=== PATIENT | female | born 1950 | race Caucasian/White ===

== ENCOUNTER 2016-06-26 10:30 | Inpatient (IN) | payer MEDICARE ==
[2016-06-26] VITALS (9 sets, daily range): BP systolic 90–126; BP diastolic 39–80; PULSE 90–100; RESP 15–20; O2SAT 89–98
[~2016-06-26] VITALS: Ht 167.6 cm; Wt 100.5 kg
[~2016-06-26 10:30] MED LIST: ASPI-351 PO; ATRV10T PO; GABA600T PO; INSU100C4 SQ; LISI2.5T66 PO; OXYC-176 PO; VENL75CA3 PO; propranolol PO
--- NOTE | 2016-06-26 11:24 | ED.REPORT ---
HPI-General Illness Date of Service Jun 26, 2016 ED Provider: Jules Camargo MD The patient is a 66 year old female with history of hypertension, hyperlipidemia , fibromyalgia, diabetes mellitus type II, and peripheral neuropathy, who presents to the emergency department complaining of back pain that has worsened over the last 2 weeks. She has been unable to get out of bed due to the pain. She has also seemed more drowsy and confused compared to her baseline. She has also been falling. She fell last night and landed on her right side. It is unclear if she has hit her head with any of the falls. She had a few episode of nausea and vomiting over the last 2 weeks and had a fever. Prior to this the patient is normally able to walk, talk, and take care of her self. She lives with her daughter. The patient is not able to provide any history at this time. Nursing Notes Stated Complaint: DIZZY/VOMITING/BACK PAIN-SENT FROM DR OFFICE Chief Complaint: General Complaint Nursing Notes Reviewed: Yes Allergies: Coded Allergies: egg (Verified Allergy, Intermediate, Diarrhea, 06/26/16) milk (Verified Allergy, Intermediate, Diarrhea, 06/26/16) No Known Allergies (Verified , 06/26/16) Scheduled Amlodipine (Amlodipine) 5 Mg Tablet 5 MG PO DAILY Buspirone (Buspirone) 15 Mg Tablet 30 MG PO BID Cholecalciferol (Vitamin D3) (Vitamin D3) 5,000 Unit Capsule 5,000 UNIT PO DAILY Escitalopram Oxalate (Escitalopram Oxalate) 10 Mg Tablet 20 MG PO DAILY Gabapentin (Gabapentin) 400 Mg Capsule 1,200 MG PO TID Glimepiride (Glimepiride) 1 Mg Tablet 1 MG PO QAM Glucosamine HCl (Glucosamine HCl) 1,500 Mg Tablet 1,500 MG PO BID Lisinopril (Lisinopril) 40 Mg Tablet 40 MG PO DAILY Lovastatin (Lovastatin) 40 Mg Tablet 40 MG PO HS Metformin (Glucophage) 1,000 Mg Tablet 1,000 MG PO BID Topiramate (Topiramate) 50 Mg Tablet 50 MG PO HS Scheduled PRN Ibuprofen (Ibuprofen) 200 Mg Capsule 800 MG PO TID PRN PRN For Pain General Time Seen by MD: 11:23 Chief Complaint Altered mental status, Back pain Hx Obtained From: Patient, Son Arrived By: Walk-in Sudden in Onset?: No Onset Occurred: More than a week ago... (2 weeks) Symptom Duration: Since onset Location: : Back: Hip right Quality: Painful Severity: Current: Moderate Severity: Maximum: Moderate Recent Healthcare: No recent hospitalization Similar Sx Previous: No Past Medical History Past Medical History Hypertension Hyperlipidemia Fibromyalgia Diabetes mellitus type II Peripheral neuropathy Hx of renal abscess Past Surgical History Right capral tunnel surgery x3 Family History Noncontributory Smoking History Unknown if Ever Smoker Social History Alcohol Use: Denies alcohol use Other Social History: Good social support, , Lives with children, Local resident Ambulatory Status Independent Review of Systems +drowsiness Unable to Obtain ROS Patient condition, Mental status Full Review of Systems Constitutional: Reports: Fever, Weakness - generalized GI: Reports: Nausea, Vomiting Musculoskeletal: Reports: Back pain Neurologic: Reports: Confusion, Weakness Psychiatric: Reports: Change mental status Physical Exam Vital Signs Vital Signs Date Time Temp Pulse Resp B/P Pulse Ox O2 Delivery O2 Flow Rate FiO2 06/26/16 15:08 98 17 117/53 98 Room Air 06/26/16 13:56 100 17 98/61 98 Room Air 06/26/16 11:20 90 20 103/61 89 Room Air 06/26/16 10:58 36.1 94 15 90/61 97 Room Air Initial VS: Reviewed ENT: Mucous membranes moist, Conjunctiva normal, No scleral icterus Neck: Supple, Non-tender, Full range of motion Extremities: Vascular intact, Neuro intact, No swelling, No tenderness Skin: Warm, Dry, No cyanosis Alertness: Positive: Confused, Somnolent Unable to provide much history. No signs of trauma. Head / Eyes: Atraumatic, Normocephalic, PERRL, EOMI Respiratory / Chest: Atraumatic, Breath sounds NL, Breath sounds = bilat, No respiratory distress, No rales, No rhonchi, No wheezing O2 sat of 99 % with 1 L by nasal cannula Cardiovascular: Heart rate NL, Regular rhythm Heart Sounds / Murmur: Positive: Systolic murmur present.. (grade II) Abdomen: Atraumatic, Soft, Non-tender, No guarding, No rebound, BS normoactive , No hernia, No palpable mass, No pulsatile mass Bowel Sounds / Distention: Positive: Distention mild Mental Status: Positive: Confused, Somnolent Interpretation & Diagnostics Interpretation & Diagnostics: Urine dip: negative Lab Results Interpretation Result Diagram: 06/26/16 1145 06/26/16 1145 Test 06/26/16 11:45 06/26/16 13:20 06/26/16 13:25 White Blood Count 6.7th/mm3 (3.8-10.1) Red Blood Count 5.36mil/mm3 (3.90-5.20) Hemoglobin 14.2g/dL (12.0-15.6) Hematocrit 42.5% (35.0-46.0) Mean Corpuscular Volume 79.3fL (81-100) Mean Corpuscular Hemoglobin 26.5pg (27.0-35.0) Mean Corpuscular Hemoglobin Concent 33.4% (32.0-37.0) Red Cell Distribution Width 14.5% (12.3-15.4) Platelet Count 242bil/L (150-400) Neutrophils (%) (Auto) 74.3% (40-74) Lymphocytes (%) (Auto) 18.9% (14-46) Monocytes (%) (Auto) 6.6% (4-12) Eosinophils (%) (Auto) 0% (0-5) Basophils (%) (Auto) 0.1% (0-3) Sodium Level 132mEq/L (134-144) Potassium Level 4.4mEq/L (3.5-5.2) Chloride Level 94mEq/L (97-108) Carbon Dioxide Level 13mmol/L (18-29) Blood Urea Nitrogen 83mg/dL (8-27) Creatinine 3.02mg/dL (0.57-1.00) Estimat Glomerular Filtration Rate 22mL/min (>59) Glucose Level 155mg/dL (60-99) Calcium Level 9.9mg/dL (8.5-10.1) Total Bilirubin 0.2mg/dL (0.0-1.2) Aspartate Amino Transf (AST/SGOT) 15U/L (0-50) Alanine Aminotransferase (ALT/SGPT) 20U/L (0-32) Alkaline Phosphatase 79U/L (25-165) Troponin T 0.010ug/L (0.0-0.011) Total Protein 7.8g/dL (6.4-8.4) Albumin 4.4g/dL (3.4-5.0) Hold Cardona Top Tube Received (Received) Urine Color Yellow (YELLOW) Urine Appearance Hazy (CLEAR,HAZY) Urine pH 5.5 (5.0-8.0) Urine Specific [place] 1.030 (1.003-1.035) Urine Protein Tracemg/dL (NEG,TRACE) Urine Glucose (UA) Negativemg/dL (NEGATIVE) Urine Ketones Negativemg/dL (NEGATIVE) Urine Occult Blood Trace (NEGATIVE) Urine Nitrite Negative (NEGATIVE) Urine Bilirubin Negative (NEGATIVE) Urine Urobilinogen Normalmg/dL (NORMAL) Urine Leukocyte Esterase Trace (NEGATIVE) Urine RBC 0-2/hpf (0-2) Urine WBC 0-5/hpf (0-5) Urine Epithelial Cells Occasional/hpf (NONE-MOD) Urine Crystals Oxalic acid crystals (NONE Urine Bacteria Few/hpf (NONE-FEW) Urine Hyaline Casts Occasional/lpf (NONE) Urine Granular Casts None seen (NONE SEEN) Urine Waxy Casts None seen (NONE SEEN) Urine Red Blood Cell Casts None seen (NONE SEEN) Urine White Blood Cell Casts None seen (NONE SEEN) Urine Mucus None seen (None Seen) Urine Trichomonas None seen (NONE SEEN) Urine Yeast None (NONE SEEN) Urinalysis Comment None Urine Culture Reflexed Indicated Lactic Acid Level 1.5mmol/L (0.4-2.0) ECG Interpretation ECG Interpretation: Sinus rhythm 93 bpm LAD Inferior Q waves NO ST segment changes No T wave abnormalities No prior available for comparison Time: 13:20 Interpreted by: ED physician X-Ray Chest Interpretation Chest Xray Interpretation: IMPRESSION: No acute cardiopulmonary disease. Dictated by: Bryce Gaitan M.D. on 06/26/2016 at 12:34 Interpretation / Wet Read by: Interpret - Radiologist CT Head Interpretation IMPRESSION: 1. No definite acute intracranial abnormality with evaluation limited by streak artifact. 2. Left-sided neurostimulator lead demonstrated extending into the left thalamus. Dictated by: Rufino Garnica M.D. on 06/26/2016 at 14:19 Study: Head CT no contrast Interpretation / Wet Read by: Interpret - Radiologist Re-Eval/Medical Decision Med Decision/Clinical Course The patient is a 66 year old female with history of hypertension, hyperlipidemia , fibromyalgia, diabetes mellitus type II, and peripheral neuropathy, who presents to the emergency department complaining of back pain that has worsened over the last 2 weeks. She has been unable to get out of bed due to the pain. She has also seemed more drowsy and confused compared to her baseline. She has also been falling. She fell last night and landed on her right side. It is unclear if she has hit her head with any of the falls. She had a few episode of nausea and vomiting over the last 2 weeks and had a fever. Prior to this the patient is normally able to walk, talk, and take care of her self. She lives with her daughter. The patient is not able to provide any history at this time. Upon entering the room the patient is significantly confused which is not her baseline. She is unable to provide any history. On the monitor she has a blood pressure in the 80s systolic and his borderline tachycardic with a heart rate of 100. She is afebrile. IV access was obtained and the patient was aggressively fluid resuscitated with improvement in her blood pressure. Due to her profound altered mental status I proceeded with broad workup as below: CXR: Obtained, reviewed and interpreted by myself shows no evidence of acute infiltrates, effusions or pneumothorax. Cardiac and mediastinal silhouette normal. No bony or soft tissue abnormalities. Head CT demonstrated no evidence of acute intracranial process or hemorrhage. EKG was obtained and interpreted by myself as documented above. Doppler studies were notable as below: CBC no leukocytosis, hct 42.5 BUN acutely elevated from baseline at 83, creatinine acutely elevated from baseline at 3.02, K is WNL, Na is 132 Lactate is 1.5 Troponin is negative Urine dip negative With IV fluid resuscitation the patient's blood pressure improved. She remained significantly confused. She had no meningismus and without fever or leukocytosis I do not feel that lumbar puncture was immediately indicated. I see no evidence of acute infectious process at this time as chest x-ray demonstrates no pneumonia, urinalysis is not consistent with UTI and is no evidence of soft tissue infection or abscess. The cause of the patient's altered mental status remains unclear. At this time, she is in acute renal failure and I feel that she requires admission for further workup. Patient was discussed with the medical hospitalist accepted for further management. Source of Hx: Old records, Family Time of Eval: 13:30 Re-Evaluation/Progress Note: Discussed with the patient's son about the plan for admission. He agrees with plan. Consultation : Referral / Consult Name: Adan Dejesus MD Consulted With: Hospitalist Requested Call at: 14:31 Call Returned at: 14:44 Screen Printing Machine Operator Helper: Will see patient, Agrees with eval, Agrees with plan, Accepts admit Counseled Regarding: Diagnosis, Lab results, Need for admission Discharge & Departure Primary Impression: Altered mental status Altered mental status type: unspecified Qualified Code: R41.82 - Altered mental status, unspecified Additional Impressions: Acute renal failure Acute renal failure type: unspecified Qualified Code: N17.9 - Acute kidney failure, unspecified Hypotension Hypotension type: unspecified hypotension type Qualified Code: I95.9 - Hypotension, unspecified Disposition: ADMITTED TO HOSPITAL Discharge Condition All VS Reviewed: Yes Condition: Stable Referrals: Estephania Martini MD (PCP) Crit Care Except Billable Proc Time Spent: 105-134 minutes Services Performed: Patient management by me, Time spent at bedside, Reviewing test results, Reviewing imaging, Discussing patient care, Documentation in record, Time with fam/surrogate Scribe Attestation Portions of this note were transcribed by Angi Mari. I, Dr. Camargo personally performed the history, physical exam and medical decision-making; I reviewed and confirmed the accuracy of the information in the transcribed note. Signed by: Migue Stephen, 06/26/2016 at 1530. copies to: Estephania Martini MD, Beck O MD Jun 26, 2016 11:24 Angi Mari Jun 26, 2016 12:52
[2016-06-26 12:12] LABS: BASOPHILS % (AUTO) 0.1 % (0-3); EOSINOPHILS % (AUTO) 0 % (0-5); MONOCYTES % (AUTO) 6.6 % (4-12); Mean Corpuscular Hemoglobin 26.5 pg (27.0-35.0); Mean Corpuscular Volume 79.3 fL (81-100); NEUTROPHILS % (AUTO) 74.3 % (40-74); Platelet Count 242 bil/L (150-400)
--- NOTE | 2016-06-26 12:38 | DRSVH ---
PROCEDURE: X-RAY CHEST ONE VIEW, PORTABLE ([id number]) INDICATIONS: ALTERED LOC TECHNIQUE: One view of the chest was acquired. COMPARISON: [facility], CT, ANGIO CHEST, 05/22/2014, 14:29. [facility], CR , CHEST 1VW (PORTABLE), 05/22/2014, 12:55. [facility], CR, CHEST 1VW (PORTABLE), 9, 9:30. FINDINGS: Surgical changes and devices: The electronic device in the left hemithorax with electrodes projecting cephalic, unchanged. Lungs and pleura: No pleural effusions or pneumothorax. Lungs are clear. Mediastinum: Mediastinal contours appear normal. Heart size is normal. Bones and chest wall: No suspicious bony lesions. Overlying soft tissues appear unremarkable. IMPRESSION: No acute cardiopulmonary disease. Dictated by: Bryce Gaitan M.D. on 06/26/2016 at 12:34 Approved by: Bryce Gaitan M.D. on 06/26/2016 at 12:36
[2016-06-26 12:41] LABS: TROPONIN T 0.01 ug/L (0.0-0.011)
[2016-06-26] MEDS ORDERED: 0.9% Sodium Chloride 1,000 ML IV ONE ×2 (13:06→13:10)
[2016-06-26] MEDS ORDERED: Lactated Ringer's 1,000 ML IV SCH (13:08)
[2016-06-26] MEDS ORDERED: Alum-Mag Hydrox-Simeth 30 mL Suspension PO PRN (13:10)
[2016-06-26 13:44] LABS: APPEARANCE,URINE HAZY (CLEAR,HAZY); COLOR,URINE YELLOW (YELLOW); OCCULT BLOOD,URINE TRACE (NEGATIVE); PH,URINE 5.5 (5.0-8.0); UROBILINOGEN,URINE NORMAL (NORMAL)
--- NOTE | 2016-06-26 14:24 | DRSVH ---
PROCEDURE: CT BRAIN WITHOUT CONTRAST ([id number]) INDICATIONS: ams/trauma TECHNIQUE: Noncontrast 4.5 mm thick angled axial sections acquired from the foramen magnum to the vertex, with c oronal reformats. COMPARISON: [facility], CT, BRAIN W/O CONTRAST, 10/07/2008, 13:20. FINDINGS: CSF spaces: Basal cisterns are patent. No extra-axial fluid collections. Ventricles are normal in size and shape. Brain: No definite intracranial hemorrhage, mass, or mass effect. Serrano-white matter interface is gr ossly preserved. There is a probable small choroidal fissure cyst redemonstrated on the right measur ing up to 6 mm. Brain: No midline shift. No intracranial masses or hemorrhage. Serrano-white matter interface is norm al. Skull and face: Calvarium and visualized facial bones demonstrate no acute fractures. There is a le ft sided neurostimulator lead traversing the left frontal bone extending through the frontal lobe int o the left thalamus. The visualized lead appears intact. Sinuses: Visualized sinuses demonstrate mild pleural thickening in the ethmoid and maxillary sinuses with a smaller fluid level in the right maxillary sinus. Mastoid air cells are clear. IMPRESSION: 1. No definite acute intracranial abnormality with evaluation limited by streak artifact. 2. Left-sided neurostimulator lead demonstrated extending into the left thalamus. Dictated by: Rufino Garnica M.D. on 06/26/2016 at 14:19 Approved by: Rufino Garnica M.D. on 06/26/2016 at 14:22
[2016-06-26] MEDS ORDERED: TOPI50TA88 PO (14:48)
[2016-06-26] MEDS ORDERED: GLIM1TAB PO (14:48)
[2016-06-26] MEDS ORDERED: AMLO5TAB2 PO (14:48)
[2016-06-26] MEDS ORDERED: METF1000 PO (14:48)
[2016-06-26] MEDS ORDERED: BUSP15TA3 PO (14:48)
[2016-06-26] MEDS ORDERED: CHOL5000 PO (14:48)
[2016-06-26] MEDS ORDERED: IBUP200C PO (14:48)
[2016-06-26] MEDS ORDERED: LISI40TA PO (14:48)
[2016-06-26] MEDS ORDERED: ESCI10TA52 PO (14:48)
[2016-06-26] MEDS ORDERED: GLUC1500 PO (14:48)
[2016-06-26] MEDS ORDERED: LOVA40TA PO (14:48)
[2016-06-26] MEDS ORDERED: GABA-504 PO (14:48)
[2016-06-26] MEDS: 0.9% Sodium Chloride 1,000 ML IV SCH (17:47)
--- NOTE | 2016-06-26 17:58 | PCM.HPMED ---
Subjective Date of Service Jun 26, 2016 Primary Provider: Admitting Physician: Adan Dejesus MD Primary Care Physician: Estephania Martini MD Attending Physician: Adan Dejesus MD Chief Complaint: After mental status. Recurrent fall History of Present Illness: This is a 66-year-old female with multiple past medical issues including hypertension, fibromyalgia, hyperlipidemia, type II diabetes, peripheral neuropathy, severe essential tremor status post deep brain stimulation device implant at . This patient baseline is quite unclear as her daughter is not the best historian about her past medical record. Patient at this time is very confused and complement to motion formations . She was brought to the emergency room after she sustained multiple fall at home, around level over the course of 3 weeks also . Her daughter she has been having change in her mental status over the city of time but has gotten worse lately . She also called and on back pain for 2 weeks following a fall . Emergency room initial workup including a CT scan of the head is negative, patient found to be in acute renal failure with a BUN of 80 and a creatinine above 3She has been taking [id number] ibuprofen since then .She does not have no known previous history of kidney failure . Concerning her falls , patient has a walker but has not been using it. The patient is normally able to walk, talk, and take care of her self. Her daughter reports that she is seemed more drowsy and confused compared to her baseline. She had a few episode of nausea and vomiting over the last 2 weeks and had a fever. Nausea and vomiting had subsided since. Allergies Coded Allergies: egg (Verified Allergy, Intermediate, Diarrhea, 06/26/16) milk (Verified Allergy, Intermediate, Diarrhea, 06/26/16) No Known Allergies (Verified , 06/26/16) Home Medications Metformin, lisinopril, ibuprofen, glipizide, amlodipine, multivitamin, buspirone , escitalopram, topiramate PMH Hypertension Hyperlipidemia Fibromyalgia Diabetes mellitus type II Peripheral neuropathy Hx of renal abscess Surgical History DBS device implant Family History Family history reviewed and is noncontributory to the present illness Social History Hx Alcohol Use: No Hx Substance Use: No Hx Tobacco Use: No Smoking Status: Unknown if Ever Smoker Living Arrangement: with Family (patient lives with her daughter) Exam Vital Signs Vital Sign - Last Date Time Temp Pulse Resp B/P Pulse Ox O2 Delivery O2 Flow Rate FiO2 06/26/16 17:18 92 113/71 06/26/16 16:26 36.3 18 95 Room Air Exam General: Obese female, in bed comfortably, confused ENT: Mucous membranes moist, Conjunctiva normal, No scleral icterus Neck: Supple, Non-tender, Full range of motion , trachea is midline Head / Eyes: Atraumatic, Normocephalic, PERRL, EOMI sclerae anicteric Chest: Atraumatic, no chest wall tenderness, normal respiratory efforts Lungs : Breath sounds NL, Breath sounds = bilat, No respiratory distress, No rales, No rhonchi, No wheezing Cardiovascular: Heart rate NL, Regular rhythm, no gallop Heart Sounds / Murmur: Positive: Systolic murmur present.. (grade II) Abdomen: Soft, Non-tender, BS normoactive, No hernia, No palpable mass Extremities: Vascular intact, Neuro intact, No swelling, No tenderness Skin : No rash, no ulcers Neuro : Confused, tremulous. Awake and alert Lab and Diagnostics Result Diagram: 06/26/16 1145 06/26/16 1145 X-Rays, CTs and MRIs CT scan of the head reviewed : 1. No definite acute intracranial abnormality with evaluation limited by streak artifact. 2. Left-sided neurostimulator lead demonstrated extending into the left thalamus. Chest x-ray reviewed: No acute cardiopulmonary disease Assessment & Plan 1. Acute metabolic encephalopathy : Patient is in acute renal failure with a BUN of 80. She has been having back pain and taking a significant amount of ibuprofen. Patient has no sign of meningismus that warrant a lumbar puncture at this time. Head CT scan is negative. She is afebrile and has no chills. Obtain culture, UA, ammonia level, urine drug screen. Her symptoms have been going on for 3 weeks now. buspirone, escitalopram and topiramate on hold Baseline mental status is unknown to me that the daughter she had a long history of essential tremor status post deep brain stimulation device implant. Patient has been falling lately, she does not use a walker to ambulate but per daughter she does have a walker. Nephrology consulted. Obtain kidney ultrasound. Monitor electrolytes and renal function closely. Discontinue ibuprofen and lisinopril. 2. Acute renal failure : Likely secondary to NSAID. Monitor renal function and electrolyte closely. 3. Hypotension : Static sitting at 75 mL/h. Blood pressure was 90 systolic on admission but since then has been above 100. No clinical sign of symptom of sepsis or ongoing infection. 4. Back pain : Obtain Lumbar spine and pelvic CT scan . Chronic medical issues 1. History of essential tremor status post DBS device implant 2. Type II diabetes 3. History of abscess 4. Fibromyalgia 5. Hyperlipidemia Home medications reviewed and reconciled. Hold antihypertensive medication as well as , ibuprofen OTC, metformin and glipizide. Diabetic diet and sliding scale insulin with coverage. Heparin for DVT prophylaxis. This is a very sick patient admitted with worsening mental status over the period of 3 weeks. She is found to be in acute renal failure but I doubt that this is the sole culprit, she has no sign or symptom of infection. Patient has a long history of severe essential tremor requiring a deep brain stimulation device implant. Above is an initial plan of care will be adjusted as his clinical course and pending the above testings Time spent 75 minutes Adan Dejesus MD Jun 26, 2016 17:58
--- NOTE | 2016-06-26 18:28 | NUR ---
Admit Patient report was given by Viry Chirinos ED RN. Patient was transported by keegan to room 3001 and transferred by 3 person and slide board assist. Patient was hard to keep awake and BP was 90/60. Patient Blood sugar was 66. Patient was given apple juice and blood sugar was rechecked at 82. Patient skin has a small dry bump just below the left knee. Patient has small scratch on right lower calf. Dried brown skin on medial buttocks and some bruising on right lower arm. Patient was confused at times and at one point thought we were on a boat. Patient could not be oriented to room and bed alarm was placed on. Call light given to patient. Patient daughter in room.
--- NOTE | 2016-06-26 21:12 | DRSVH ---
PROCEDURE: US ABDOMEN INDICATIONS: Acute renal failure TECHNIQUE: Real-time scanning was performed of the abdominal and retroperitoneal organs, with image documentatio n. COMPARISON: [facility], US, ABDOMEN SONOGRAM, 10/10/2008, 13:59. FINDINGS: Liver length: 19.00 cm Gallbladder Wall Thickness: 2.30 mm CHD: 4.20 mm CBD: 5.70 mm Spleen length: 12.21 cm Right kidney length: 12.75 cm Left kidney length: 12.75 cm Aorta(Proximal): 1.80 cm Liver: Liver is normal in size and demonstrates diffuse increased echotexture. Gallbladder: There are gallstones. No gallbladder wall thickening, pericholecystic fluid or sonograp hic Barrera's sign. Biliary ducts: Intrahepatic bile ducts are non-dilated. Extrahepatic bile duct caliber is normal. Normal is 6-7 mm or less in diameter, or 10 mm or less post-cholecystectomy. Pancreas: Visualized portions of the pancreas are sonographically normal. Spleen: Spleen is normal in size and homogeneous in echotexture. Kidneys: Kidneys are normal in size and echotexture. No hydronephrosis or nephrolithiasis. No rashaad d masses. Aorta: Visualized aorta is normal in caliber at less than 3 cm. Iliacs: Proximal common iliac arteries are obscured by overlying bowel gas. IVC: Intrahepatic inferior vena cava is patent. Miscellaneous: No free abdominal fluid. IMPRESSION: 1. No ultrasound findings to explain acute renal failure. No hydronephrosis. 2. Cholelithiasis. No ultrasound evidence for acute cholecystitis. 3. Diffusely increased hepatic echotexture. This finding is most likely secondary to hepatic fatty in filtration although other hepatocellular disease may have a similar appearance. Recommend clinical co rrelation. Dictated by: Bryce Gaitan M.D. on 06/26/2016 at 21:07 Approved by: Bryce Gaitan M.D. on 06/26/2016 at 21:10
[2016-06-26] MEDS: Heparin 5,000 Unit/mL Inj SUBQ SCH (21:14)
--- NOTE | 2016-06-26 21:19 | DRSVH ---
PROCEDURE: CT LUMBAR SPINE WITHOUT CONTRAST ([id number]) INDICATIONS: fall /back pain TECHNIQUE: Noncontrast 3 mm thick sections acquired from the T12 level to the sacrum. Sagittal and coronal refo rmats were constructed. For radiation dose reduction, the following was used: automated exposure co ntrol. COMPARISON: None. FINDINGS: Image quality: Excellent. Bones: There is normal bony alignment. No acute vertebral body compression fractures. No suspiciou s lytic or blastic bony lesions. Central spinal caliber is of normal overall caliber. No pars defec ts. There is degenerative disc disease, severe at T10,-T11, T11-T12, T12-L1, and L5-S1. Moderate to severe bilateral facet arthropathy at L3-L4, L4-L5 and L5-S1. Soft tissues: No retroperitoneal masses or hematomas. Visualized aorta is normal in caliber. IMPRESSION: 1. No fractures. 2. Degenerative disc disease and facet arthropathy in lumbar spine. Dictated by: Bryce Gaitan M.D. on 06/26/2016 at 21:15 Approved by: Bryce Gaitan M.D. on 06/26/2016 at 21:17
--- NOTE | 2016-06-26 21:23 | DRSVH ---
PROCEDURE: CT PELVIS WITHOUT CONTRAST ([id number]) INDICATIONS: fall /back pain TECHNIQUE: Noncontrast 3 mm axial sections acquired through the bony pelvis, with coronal and sagittal reformatt ing. COMPARISON: None. FINDINGS: Image quality: Excellent. Bones: No fractures or dislocation. There is severe degenerative disc disease and facet arthropathy a t L5-S1. Moderate sacroiliac joint and hip joint degeneration bilaterally. There is osteitis pubis. A small lucency in the right pubis adjacent to the pubic symphysis is slightly caused by a cyst or denisa de. Soft tissues: No subcutaneous fluid collection to suggest hematoma. IMPRESSION: No fractures or dislocation. Degenerative changes as described. Dictated by: Bryce Gaitan M.D. on 06/26/2016 at 21:18 Approved by: Bryce Gaitan M.D. on 06/26/2016 at 21:22
[2016-06-27] VITALS (11 sets, daily range): BP systolic 94–154; BP diastolic 62–89; PULSE 77–91; RESP 18–19; O2SAT 89–98
--- NOTE | 2016-06-27 03:31 | NUR ---
Mentation Patient has been cooperative with care. Oriented to self, birthdate, and place. Patient is forgetful with word-searching; will speak in half sentences and have trouble remember what she was saying. Also repeats self. Two person assisting to get patient up to commode, has uncoordinated gait with baseline tremors. [place] alarm is on bed, daughter in room, and frequent rounding in place. Bed is in lowest, locked position.
[2016-06-27 05:43] LABS: Mean Corpuscular Hemoglobin 26.5 pg (27.0-35.0)
[2016-06-27] MEDS: 0.9% Sodium Chloride 1,000 ML IV SCH ×2 (06:06→18:38)
[2016-06-27] MEDS: Heparin 5,000 Unit/mL Inj SUBQ SCH ×2 (09:21→19:58)
--- NOTE | 2016-06-27 11:48 | PCM.PNMED ---
Subjective Date of Service Jun 27, 2016 Subjective pt seemed more alert this AM, AAOx2, communicative, remembers she fell but not details. had small amount of breakfast well, no n/v Exam Vital Signs Vital Sign - Last Date Time Temp Pulse Resp B/P Pulse Ox O2 Delivery O2 Flow Rate FiO2 06/27/16 09:20 36.6 87 18 119/76 92 Room Air Intake and Output 06/26/16 06/26/16 06/27/16 Cumulative From/Thru 15:00 23:00 07:00 06/26/16 16:29 - 06/27/16 04:08 Intake Total 119 ml 753 ml 872 ml Output Total 400 ml 400 ml Balance -281 ml 753 ml 472 ml IV Total 119 ml 753 ml 872 ml Output Urine Total 400 ml 400 ml Exam NAD, comfortably laying down on the bed no JVD, MMM, no LAD RRR, nl s1, s2 no mrg CTAB, no w,c S,ND,NT,normoactive BS+ warm, no edema, pulses 2/2 IVs and Medications Medications Reviewed: Medications were reviewed in detail Lab and Diagnostics Result Diagram: 06/27/16 0530 06/27/16 0530 X-Rays, CTs and MRIs CT scan of the head reviewed : 1. No definite acute intracranial abnormality with evaluation limited by streak artifact. 2. Left-sided neurostimulator lead demonstrated extending into the left thalamus. Chest x-ray reviewed: No acute cardiopulmonary disease Assessment & Plan 1.s/p fall, acute metabolic encephalopathy, likely toxic metabolic due to severe uremia, NICK, POA, CTH unremarkable. TSH WNL -clinically improved as NICK resolving, -continue to hold BURGLAR ALARM OPERATOR meds, buspirone, escitalopram and topiramate for now -telemetry given falls 2. Acute renal failure : Likely secondary to NSAID. improving with IVF Monitor renal function and electrolyte closely. -continue gentle hydration 3. Hypotension : Static sitting at 75 mL/h. Blood pressure was 90 systolic on admission but since then has been above 100. No clinical sign of symptom of sepsis or ongoing infection. 4. Back pain : Obtain Lumbar spine and pelvic CT scan . Chronic medical issues, stable 1. History of essential tremor status post DBS device implant 2. Type II diabetes, lispro SS 3. History of abscess 4. Fibromyalgia 5. Hyperlipidemia dispo: likely 2-3more days until renal functions improve, HH vs SNF per pt diet: diabetic Heparin for DVT prophylaxis. VTE Mechanical Devices: Intermittant Pneumatic CD Time spent 35 minutes Haim Seymour MD Jun 27, 2016 11:48
[2016-06-27 13:13] LABS: Magnesium 1.7 mg/dL (1.6-2.6); Phosphorus 4.6 mg/dL (2.5-4.9)
--- NOTE | 2016-06-27 13:34 | CONS ---
[address] [address] CONSULTATION REPORT PATIENT: GARRISON STORM V : 1950 MR#: [id number] ADMIT: 06/26/2016 JOB ID: [id number] DATE OF SERVICE: 06/27/2016 NEPHROLOGY CONSULTATION: REQUESTING PHYSICIAN: Adan Dejesus MD REASON FOR CONSULTATION: Management of abnormal kidney function. CHIEF COMPLAINT: Altered mental status. HISTORY OF PRESENT ILLNESS: This is a 66-year-old lady with significant past medical history of type 2 diabetes, hypertension, fibromyalgia, and dyslipidemia, who presented to the hospital due to altered mental status and frequent falls. The patient is confused and unable to provide me a meaningful history. Her daughter is at the bedside. The daughter reports that the patient has had declining mental status over the past three weeks. She also had history of frequent falls. She stated that over the past two days she had fallen three times already. The patient does not have any significant fever, headache, or blurry vision. The patient stated that she had a little bit of chills at home. She did not have any history of dysuria, hematuria, or lower extremity swelling. The daughter mentioned that the patient has been on the ibuprofen for at least 20 years treating for fibromyalgia. The amount of ibuprofen the patient has taken was approximately over 10 pills a day. Her initial blood work showed BUN of 83 and creatinine of 3.02. Her previous serum creatinine was 0.72 in October 2008. We do not have anything recent. However, the patient has not been told that she has kidney disease. Of note, the patient has been on lisinopril for blood pressure. PAST MEDICAL HISTORY: 1. Type 2 diabetes. 2. Hypertension. 3. Dyslipidemia. 4. Severe essential tremor, status post deep brain stimulation device implant at [facility]. 5. Fibromyalgia. 6. Peripheral neuropathy. PAST SURGICAL HISTORY: The patient does not have any abdominal surgery, only for over 30 years ago. She had deep brain stimulator implantation. FAMILY HISTORY: No kidney disease in the family. SOCIAL HISTORY: Denies current use of alcohol, tobacco, or illicit drugs. She lives with her daughter. REVIEW OF SYSTEMS: Unable to complete due to altered mental status. PHYSICAL EXAMINATION: Vitals: Temperature 36.6, pulse 87, respiratory 18, blood pressure 119/76, O2 sat 92% on room air. General appearance: Awake, confused at times. Lying in bed comfortably, in no acute distress. HEENT: No pallor, no jaundice. No JVD. No lymphadenopathy. No thyroid enlargement. Heart: Regular rhythm. Normal S1, S2. Systolic murmur noted, especially on the right upper chest. Abdomen: Soft, obese. Active bowel sounds. Nontender, nondistended. No hepatosplenomegaly. Extremities: No edema, cyanosis, or clubbing of fingers. LABORATORY: Sodium 137, potassium 3.8, chloride 105, bicarb of 14, BUN 70, creatinine 1.76, glucose 100. A1c 6.9. Lactic acid 1.5. Calcium of 1.9. Hemoglobin 12.2. UA: Specific gravity 1.030, pH 5.5, 0-2 RBCs, 0-5 WBCs, occasional hyaline cast, few bacteria. Oxalic acid crystal noted. CT brain showed left-sided neuro stimulator lead demonstrated extending into the left thalamus. Abdominal ultrasound showed no renal hydronephrosis. Positive for cholelithiasis without evidence of acute cholecystitis. Diffusely increased hepatic echotexture likely secondary to hepatic fatty infiltration. CT-spine of the lumbar spine showed no fracture. Positive for degenerative disk disease. ASSESSMENT: 1. Acute kidney injury, unknown baseline serum creatinine. However, the patient is not aware of having kidney disease. She came in with a serum creatinine of 3.02. She received IV fluid overnight and today came down to 1.76. Of note, the patient has been on ibuprofen for at least 20 years treating for fibromyalgia. According to the patient and her family she has taken at least 10 pills of [id number] ibuprofen every day. Her urine does not show any active sediment, however it shows a high specific gravity, indicating prerenal azotemia. I agree with the current fluid rate. We will continue normal saline 75 mL/hour. We will hold lisinopril and discontinue all NSAIDs. 2. Hypotension, unclear etiology. There is no active infection identified so far. Her blood pressure has improved with the IV fluids. Current antihypertensive medication now on hold. 3. Altered mental status and frequent falls. Could be related to metabolic encephalopathy, possible uremia. According to the daughter, she has improved overnight but remains confused at times. 4. Underlying disease of fibromyalgia, type 2 diabetes with peripheral neuropathy, and essential tremor status post deep brain stimulation device implantation. PLAN: 1. Continue current IV fluids. 2. Hold lisinopril and ibuprofen. 3. I will check her vitamin D and PTH level. 4. I will order a urine protein/creatinine ratio. Thank you for the consultation. We will monitor along with you.
[2016-06-27] MEDS: Ondansetron 2 mg/mL 2 mL Inj IVPUSH PRN (14:39)
--- NOTE | 2016-06-27 15:51 | NUR ---
Evaluation completed. Please go to "Notes" then click on "Assessments and Notes" (bottom left corner of screen). Then select appropriate discipline tab on top of screen.
[2016-06-28] VITALS (9 sets, daily range): BP systolic 153–171; BP diastolic 78–92; PULSE 75–86; RESP 18–20; O2SAT 94–96
--- NOTE | 2016-06-28 03:25 | NUR ---
Mentation/Activity Patient's mentation is more clear than last night. Patient still has trouble finishing thoughts. Oriented to self, place, birthdate, and is able to make conversation. More alert than last night also. Patient's strength has improved. Is now up with one person to BSC and walker- last night she was a maximum two-person assist. Patient continues to report vertigo when getting back in bed. [place] bed alarm on for safety, patient is using call light for needs. Intentional rounding in place.
[2016-06-28 05:24] LABS: BASOPHILS % (AUTO) 0.4 % (0-3); EOSINOPHILS % (AUTO) 0 % (0-5); MONOCYTES % (AUTO) 8.4 % (4-12); Mean Corpuscular Hemoglobin 26.4 pg (27.0-35.0); Mean Corpuscular Volume 80.5 fL (81-100); NEUTROPHILS % (AUTO) 47.8 % (40-74); Platelet Count 209 bil/L (150-400)
[2016-06-28 07:05] LABS: Magnesium 1.5 mg/dL (1.6-2.6); Phosphorus 3.3 mg/dL (2.5-4.9)
[2016-06-28] MEDS ORDERED: Magnesium Sulf 2 Gm/50mL Water 2 GM in IV Premix 1 EACH IV ONE (07:20)
[2016-06-28] MEDS: 0.9% Sodium Chloride 1,000 ML IV SCH ×2 (08:04→21:07)
[2016-06-28] MEDS: Heparin 5,000 Unit/mL Inj SUBQ SCH ×2 (08:05→20:00)
[2016-06-28] MEDS: BusPIRone 15 mg Dividose Tablet PO SCH ×2 (08:46→19:59)
[2016-06-28] MEDS: Ondansetron 2 mg/mL 2 mL Inj IVPUSH PRN (09:49)
--- NOTE | 2016-06-28 11:45 | PCM.PNMED ---
Subjective Date of Service Jun 28, 2016 Subjective pt looked more alert, still mildly confused per daughter had mild emesis once this AM, zofran given renal function greatly improved today received tramadol but still c/o whole body aches resumed home meds today Exam Vital Signs Vital Sign - Last Date Time Temp Pulse Resp B/P Pulse Ox O2 Delivery O2 Flow Rate FiO2 06/28/16 08:57 36.4 80 20 171/84 94 Room Air Intake and Output 06/27/16 06/27/16 06/28/16 Cumulative From/Thru 15:00 23:00 07:00 06/26/16 16:29 - 06/28/16 05:32 Intake Total 380 ml 2106 ml 792 ml 4150 ml Output Total 1050 ml 700 ml 2150 ml Balance -670 ml 1406 ml 792 ml 2000 ml Intake Oral 380 ml 1036 ml 1416 ml IV Total 1070 ml 792 ml 2734 ml Output Urine Total 1050 ml 700 ml 2150 ml # Voids 1 1 Exam NAD, comfortably laying down on the bed AAOx2-3, not oriented to month no JVD, MMM, no LAD RRR, nl s1, s2 no mrg CTAB, no w,c S,ND,NT,normoactive BS+ warm, no edema, pulses 2/2 IVs and Medications Medications Reviewed: Medications were reviewed in detail Lab and Diagnostics Result Diagram: 06/28/1618 06/28/16 0518 X-Rays, CTs and MRIs CT scan of the head reviewed : 1. No definite acute intracranial abnormality with evaluation limited by streak artifact. 2. Left-sided neurostimulator lead demonstrated extending into the left thalamus. Chest x-ray reviewed: No acute cardiopulmonary disease Assessment & Plan 1.s/p fall, acute metabolic encephalopathy, likely toxic metabolic due to severe uremia, NICK, POA, CTH unremarkable. TSH WNL -clinically improved as NICK resolving, -will resume FURNACE FEEDER meds, buspirone, escitalopram and topiramate, monitor response today. -continue telemetry given falls, no episodes so far. 2. Acute renal failure : Likely secondary to NSAID. improving with IVF -Monitor renal function and electrolyte closely. -continue gentle hydration, -appreciate renal recs. 3. Hypotension : Static sitting at 75 mL/h. Blood pressure was 90 systolic on admission but since then has been above 100. No clinical sign of symptom of sepsis or ongoing infection. 4. Back pain : Obtain Lumbar spine and pelvic CT scan . Chronic medical issues, stable 1. History of essential tremor status post DBS device implant 2. Type II diabetes, lispro SS 3. History of abscess 4. Fibromyalgia 5. Hyperlipidemia dispo: likely 1-2more days until renal functions improve, HH vs SNF per PT diet: diabetic Heparin for DVT prophylaxis. VTE Mechanical Devices: Intermittant Pneumatic CD Time spent 35min Haim Seymour MD Jun 28, 2016 11:45
--- NOTE | 2016-06-28 12:55 | PCM.PNMED ---
Subjective Date of Service Jun 28, 2016 Subjective more awake and alert today, somewhat confused. now c/o nausea, IV zofran administered. serum creatinine normalized. Exam Vital Signs Vital Sign - Last Date Time Temp Pulse Resp B/P Pulse Ox O2 Delivery O2 Flow Rate FiO2 06/28/16 08:57 36.4 80 20 171/84 94 Room Air Intake and Output 06/27/16 06/27/16 06/28/16 Cumulative From/Thru 15:00 23:00 07:00 06/26/16 16:29 - 06/28/16 05:32 Intake Total 380 ml 2106 ml 792 ml 4150 ml Output Total 1050 ml 700 ml 2150 ml Balance -670 ml 1406 ml 792 ml 2000 ml Intake Oral 380 ml 1036 ml 1416 ml IV Total 1070 ml 792 ml 2734 ml Output Urine Total 1050 ml 700 ml 2150 ml # Voids 1 1 Exam General appearance: Awake, confused at times. Oriented x 2 (place, person). Lying in bed comfortably, in no acute distress. HEENT: No pallor, no jaundice. No JVD. No lymphadenopathy. No thyroid enlargement. Heart: Regular rhythm. Normal S1, S2. Systolic murmur noted, especially on the right upper chest. Abdomen: Soft, obese. Active bowel sounds. Nontender, nondistended. No hepatosplenomegaly. Extremities: No edema, cyanosis, or clubbing of fingers. Lab and Diagnostics Result Diagram: 06/28/1651706/28/1618 X-Rays, CTs and MRIs CT scan of the head reviewed : 1. No definite acute intracranial abnormality with evaluation limited by streak artifact. 2. Left-sided neurostimulator lead demonstrated extending into the left thalamus. Chest x-ray reviewed: No acute cardiopulmonary disease Assessment & Plan 1. Acute kidney injury, unknown baseline serum creatinine. - secondary to prerenal azotemia. 2. Hypotension, unclear etiology. - There is no active infection identified so far. - Her blood pressure has improved with the IV fluids. - Now hypertensive, norvasc started. 3. Altered mental status and frequent falls. - improved. 4. Underlying disease of fibromyalgia. 5. Type 2 diabetes with peripheral neuropathy. 6. Essential tremor status post deep brain stimulation device implantation. Plan: Continue IVF NS 75 ml/hr for one more 1L then d/c. Avoid NSAIDs. will sign off, please do not hesitate to call with any question. Thank you for the consultation. VTE Mechanical Devices: Intermittant Pneumatic CD Amadeo Reeves MD Jun 28, 2016 12:55
--- NOTE | 2016-06-28 13:57 | NUR ---
Social Work: Initial Assessment Data: Pt is a 66 y/o female admitted for AMS/ARF. Pt's PCP is Dr Martini. Pt's insurance is [employer]. EMR reviewed, readmit score is 4, high. MEDICAL STAFF ASSISTANT met with pt at bedside with pt's daughter, role explained. Pt states that she lives in [place] with her daughter and her grandson. Pt is confused about a lot of the questions MEDICAL STAFF ASSISTANT is asking. Pt's daughter answered most questions following pt's response. Pt's daughter states that at baseline, pt drives, has assistance with medications but no other ADL's. Pt has no DME, has no hx of HH or SNF, no LTC or VA benefits, and is not a caregiver. Pt's daughter states she is the DPOA, MEDICAL STAFF ASSISTANT requested copy for hospital. MEDICAL STAFF ASSISTANT explained that PT is recommending SNF, SNF/HH choice list given. Pt's daughter states [facility] with [facility] Robbin Saucedo second. UR specialist notified, referrals made. MEDICAL STAFF ASSISTANT offered [facility] book to pt's daughter, she accepted. MEDICAL STAFF ASSISTANT explained that [facility] medicare would need to approve or deny SNF stay prior to d/c to SNF. MEDICAL STAFF ASSISTANT explained the choices if denied including HH, private pay caregiving, and assisted living facilities. Pt's daughter states understanding. MEDICAL STAFF ASSISTANT will continue to follow. Assessment: Pt who is independent at baseline. Plan: Pt will d/c either to SNF ([facility] or [facility], both referred), or home with daughter with HH and possible private pay caregiving. MEDICAL STAFF ASSISTANT will continue to follow. STEPHANIE Hernandez Addendum: 06/28/16 at 1403 by ABUNDIO WHITE Amended: Links added.
--- NOTE | 2016-06-28 14:02 | NUR ---
Gave acces and faxed facehseet to [facility] and [facility] per TRIM MACHINE ADJUSTER
--- NOTE | 2016-06-28 17:27 | NUR ---
Mentation/Activity/pain Patient is oriented to self, place and month. Reoriented her to day and date. She is able to stand with contact guard to use BSC. Denies nausea, lightheadedness or vertigo with movement. Refused to take Gabapentin as prescribed as she stated she vomited after taking her medication this am. Per RN report, she had a small emesis after taking her medications. Pt stated she has pain in her flank area, was unable to describe exactly where the pain was, but was able to point to the location on this RNs body. Pt was also unable to describe the type of pain that she is experiencing. Pt agreed to take her PO tylenol for pain. Upon reassessment she was unable to verbalize a number using pain scale. She could only state that she still had pain, but it was less. [place] bed alarm on for safety, patient is using call light for needs. Intentional rounding in place.
[2016-06-29 04:03] VITALS: BP 160/90; PULSE 68; RESP 18; O2SAT 97
[2016-06-29 06:00] VITALS: PULSE 84
[2016-06-29 06:36] LABS: BASOPHILS % (AUTO) 0.2 % (0-3); EOSINOPHILS % (AUTO) 0 % (0-5); MONOCYTES % (AUTO) 8.5 % (4-12); Mean Corpuscular Hemoglobin 26.4 pg (27.0-35.0); Mean Corpuscular Volume 77.1 fL (81-100); Platelet Count 249 bil/L (150-400)
[2016-06-29 06:59] LABS: Magnesium 1.5 mg/dL (1.6-2.6); Phosphorus 2.8 mg/dL (2.5-4.9)
[2016-06-29] MEDS ORDERED: Magnesium Sulf 2 Gm/50mL Water 2 GM in IV Premix 1 EACH IV ONE (07:20)
[2016-06-29] MEDS: BusPIRone 15 mg Dividose Tablet PO SCH (08:22)
[2016-06-29] MEDS: Heparin 5,000 Unit/mL Inj SUBQ SCH (08:24)
[2016-06-29 09:10] VITALS: PULSE 63
[2016-06-29 09:40] VITALS: BP 152/75; PULSE 79; RESP 20; O2SAT 93
--- NOTE | 2016-06-29 10:36 | PCM.DIMED ---
Discharge Instructions Date of Service Jun 29, 2016 Dates of Hospitalization Jun 26, 2016 at 15:52 Discharge Diagnosis Discharge Diagnosis Acute encephalopathy, falls in the setting of severe uremia, NICK Medication Instructions Please note that Lisinopril is stopped due to kidney injury, Please take 2tab of amlodipine, 10mg for better blood pressure control Please avoid ibuprofen, Advil, Alleve for your pain, because this is also bad for your kidneys Diet Diabetic, Renal Diet Activity No restrictions Patient Instructions You were hospitalized with confusion, falls, poor kidney functions. Your kidney function greatly improved with medical treatment. Follow-up plan please follow up with your doctor in one week. Follow-up Provider: Estephania Martini MD Follow-up with PCP in: 1 week Haim Seymour MD Jun 29, 2016 10:36
[2016-06-29] MEDS ORDERED: AMLO5TAB2 PO (10:38)
--- NOTE | 2016-06-29 11:57 | NUR ---
Social Work-readiness for discharge: Data:EMR reviewed. Pt is on day 3 of hospitalization for AMS per H&P. Pt may be medically stable later today. PT saw pt and continues to recommend SNF vs home with HH. Pt ambulating about 35ft. SW followed up with pt and daughter, SW role explained. Pt and daughter declining SNF, would prefer to return home. SW discussed HH services, HH choice list provided. Daughter has no agency preference. SW referred to [facility] and made referral to [facility] for RN,PT, OT, and VENDING SERVICE TECHNICIAN. Daughter lives with pt and has set up friends to assist during the day.F2F in folder. SW will continue to follow. Assessment:pt who would benefit from HH. Plan:Pt to discharge home with daughter when medically stable via POV. Pt and daughter declining SNF. Referral made to [facility] for RN,PT,OT, and VENDING SERVICE TECHNICIAN. F2F in folder. SW will continue to follow. STEPHANIE Kearney
--- NOTE | 2016-06-29 12:02 | NUR ---
Social Work-discharge: Data:EMR reviewed. Pt is on day 3 of hospitalization for AMS per H&P. Pt may be medically stable later today. PT saw pt and continues to recommend SNF vs home with HH. Pt ambulating about 35ft. SW followed up with pt and daughter and confirms plan of home with family/friend assist and HH services. Pt/family continue to decline SNF. SW informed Eldon Schroeder with [facility] of discharge and faxed in F2F and orders for RN,PT,OT, and SPACE OPERATIONS OFFICER. [facility] has availability for services starting Saturday 07/01. Pt's daughter to provide transport home. All updated and agreeable to plan. Assessment:Pt who would benefit from HH. Plan:Pt to discharge home with daughter via POV. Daughter has friends to assist during the day at home when daughter is not there. F2F and orders faxed into [facility] for RN,PT, OT, and SPACE OPERATIONS OFFICER. All updated and agreeable to plan. STEPHANIE Kearney
--- NOTE | 2016-06-29 12:02 | NUR ---
choice list provided. STEPHANIE Kearney
--- NOTE | 2016-06-29 12:19 | NUR ---
Discharge Patient departed unit via wheelchair accompanied by staff and daughter. Patient alert and oriented x3, confused intermittently but easily redirected. Patient up to bathroom standby assist with front wheeled walker. Prior to discharge, patient displayed adequate elimination and nutritional intake. Discharge instructions/medications and diet reviewed with patient and daughter prior to discharge.All questions addressed. Patient belongings, discharge instructions and prescription in hand.
--- NOTE | 2016-06-29 16:54 | PCM.DC.MED ---
Discharge Summary Date of Service Jun 29, 2016 Dates of Hospitalization Date of Hospital Admission Jun 26, 2016 at 15:52 Date of Discharge: Jun 29, 2016 Providers: Admitting Physician: Adan Dejesus MD Primary Care Physician: Estephania Martini MD Attending Physician: Adan Dejesus MD Diagnosis at Time of Discharge Diagnosis at Time of Discharge Acute encephalopathy, falls in the setting of severe uremia, NICK Acute renal failure Chronic medical issues, stable 1. History of essential tremor status post DBS device implant 2. Type II diabetes, lispro SS 3. History of abscess 4. Fibromyalgia 5. Hyperlipidemia 6. HTN Consultations Nephrology Procedures XRay, CTs & MRIs PROCEDURE: US ABDOMEN INDICATIONS: Acute renal failure TECHNIQUE: Real-time scanning was performed of the abdominal and retroperitoneal organs, with image documentation. COMPARISON: [facility], [place], ABDOMEN SONOGRAM, 10/10/2008, 13:59. FINDINGS: Liver length: 19.00 cm Gallbladder Wall Thickness: 2.30 mm CHD: 4.20 mm CBD: 5.70 mm Spleen length: 12.21 cm Right kidney length: 12.75 cm Left kidney length: 12.75 cm Aorta(Proximal): 1.80 cm Liver: Liver is normal in size and demonstrates diffuse increased echotexture. Gallbladder: There are gallstones. No gallbladder wall thickening, pericholecystic fluid or sonographic Barrera's sign. Biliary ducts: Intrahepatic bile ducts are non-dilated. Extrahepatic bile duct caliber is normal. Normal is 6-7 mm or less in diameter, or 10 mm or less post-cholecystectomy. Pancreas: Visualized portions of the pancreas are sonographically normal. Spleen: Spleen is normal in size and homogeneous in echotexture. Kidneys: Kidneys are normal in size and echotexture. No hydronephrosis or nephrolithiasis. No solid masses. Aorta: Visualized aorta is normal in caliber at less than 3 cm. Iliacs: Proximal common iliac arteries are obscured by overlying bowel gas. IVC: Intrahepatic inferior vena cava is patent. Miscellaneous: No free abdominal fluid. IMPRESSION: 1. No ultrasound findings to explain acute renal failure. No hydronephrosis. 2. Cholelithiasis. No ultrasound evidence for acute cholecystitis. 3. Diffusely increased hepatic echotexture. This finding is most likely secondary to hepatic fatty infiltration although other hepatocellular disease may have a similar appearance. Recommend clinical correlation. Dictated by: Bryce Gaitan M.D. on 06/26/2016 at 21:07 Approved by: Bryce Gaitan M.D. on 06/26/2016 at 21:10 CT scan of the head reviewed : 1. No definite acute intracranial abnormality with evaluation limited by streak artifact. 2. Left-sided neurostimulator lead demonstrated extending into the left thalamus. Chest x-ray reviewed: No acute cardiopulmonary disease Brief History This is a 66-year-old female with multiple past medical issues including hypertension, fibromyalgia, hyperlipidemia, type II diabetes, peripheral neuropathy, severe essential tremor status post deep brain stimulation device implant at . This patient baseline is quite unclear as her daughter is not the best historian about her past medical record. Patient at this time is very confused and complement to motion formations . She was brought to the emergency room after she sustained multiple fall at home, around level over the course of 3 weeks also . Her daughter she has been having change in her mental status over the city of time but has gotten worse lately . She also called and on back pain for 2 weeks following a fall . Emergency room initial workup including a CT scan of the head is negative, patient found to be in acute renal failure with a BUN of 80 and a creatinine above 3She has been taking [id number] ibuprofen since then .She does not have no known previous history of kidney failure . Concerning her falls , patient has a walker but has not been using it. The patient is normally able to walk, talk, and take care of her self. Her daughter reports that she is seemed more drowsy and confused compared to her baseline. She had a few episode of nausea and vomiting over the last 2 weeks and had a fever. Nausea and vomiting had subsided since. Hospital Course acute problems 1.s/p fall, acute metabolic encephalopathy, likely toxic metabolic due to severe uremia, NICK, CTH was unremarkable. TSH WNL. pt was clinically improved, back to baseline MS as NICK resolving. pt was resumed all of her [employer] meds, buspirone, escitalopram and topiramate, didn't affect her mental status. patient ambulated with normal gait, assessed by PT, deemed safe to d/c to home with home health. 2.Acute renal failure : Likely secondary to NSAIDs, pt was off on all NSAID, lisinopril during hospitalization. Gentle hydration 75cc/hr given for 2days, Renal function rapidly improved, 3. Hypotension. patient was initially hypotensive to 90s but became hypertensive to 150s as lisinopril being stopped, recommended to increase amlodipine 10mg qd upon d/c, further adjustment per PCP later. Chronic medical issues, stable 1. History of essential tremor status post DBS device implant 2. Type II diabetes, lispro SS 3. History of abscess 4. Fibromyalgia 5. Hyperlipidemia Exam Vital Signs (Last) Date Time Temp Pulse Resp B/P Pulse Ox O2 Delivery O2 Flow Rate FiO2 06/29/16 11:30 Supplement Oxygen 06/29/16 09:40 37.1 79 20 152/75 93 Exam NAD, comfortably laying down on the bed AAOx2-3, not oriented to month no JVD, MMM, no LAD RRR, nl s1, s2 no mrg CTAB, no w,c S,ND,NT,normoactive BS+ warm, no edema, pulses 2/2 Test 06/26/16 11:45 06/26/16 13:20 06/26/16 13:25 06/27/16 03:23 Hemoglobin A1c 6.9% (4.8-5.6) Troponin T 0.010ug/L (0.0-0.011) Hold [place] Top Tube Received (Received) Urine Color Yellow (YELLOW) Urine Appearance Hazy (CLEAR,HAZY) Urine pH 5.5 (5.0-8.0) Urine Specific [place] 1.030 (1.003-1.035) Urine Protein Tracemg/dL (NEG,TRACE) Urine Glucose (UA) Negativemg/dL (NEGATIVE) Urine Ketones Negativemg/dL (NEGATIVE) Urine Occult Blood Trace (NEGATIVE) Urine Nitrite Negative (NEGATIVE) Urine Bilirubin Negative (NEGATIVE) Urine Urobilinogen Normalmg/dL (NORMAL) Urine Leukocyte Esterase Trace (NEGATIVE) Urine RBC 0-2/hpf (0-2) Urine WBC 0-5/hpf (0-5) Urine Epithelial Cells Occasional/hpf (NONE-MOD) Urine Crystals Oxalic acid crystals (NONE Urine Bacteria Few/hpf (NONE-FEW) Urine Hyaline Casts Occasional/lpf (NONE) Urine Granular Casts None seen (NONE SEEN) Urine Waxy Casts None seen (NONE SEEN) Urine Red Blood Cell Casts None seen (NONE SEEN) Urine White Blood Cell Casts None seen (NONE SEEN) Urine Mucus None seen (None Seen) Urine Trichomonas None seen (NONE SEEN) Urine Yeast None (NONE SEEN) Urinalysis Comment None Urine Culture Reflexed Indicated Lactic Acid Level 1.5mmol/L (0.4-2.0) Urine Opiates Screen Negative Urine Methadone Screen Negative Urine Barbiturates Screen Negative Urine Amphetamines Screen Negative Urine Benzodiazepines Screen Negative Urine Cocaine Metabolite Screen Negative Urine Cannabinoids Screen Negative Test 06/27/16 05:30 06/27/16 21:37 06/28/16 05:18 06/29/16 06:10 Ammonia 36ug/dL (18-53) Procalcitonin 0.83ng/mL (0.00-0.08) Thyroid Stimulating Hormone (TSH) 0.500uIU/mL (0.450-4.500) Free Thyroxine 0.95ng/dL (0.82-1.77) Urine Random Creatinine 54mg/dL (15-278) Urine Random Total Protein 7mg/dL (0-15) Hold Urine Received (Received) Vitamin D 25-Hydroxy 44.9ng/mL (30.0-100.0) Parathyroid Hormone (Intact) 39pg/mL (15-65) White Blood Count 6.0th/mm3 (3.8-10.1) Red Blood Count 4.50mil/mm3 (3.90-5.20) Hemoglobin 11.9g/dL (12.0-15.6) Hematocrit 34.7% (35.0-46.0) Mean Corpuscular Volume 77.1fL (81-100) Mean Corpuscular Hemoglobin 26.4pg (27.0-35.0) Mean Corpuscular Hemoglobin Concent 34.3% (32.0-37.0) Red Cell Distribution Width 14.4% (12.3-15.4) Platelet Count 249bil/L (150-400) Neutrophils (%) (Auto) 62.0% (40-74) Lymphocytes (%) (Auto) 29.1% (14-46) Monocytes (%) (Auto) 8.5% (4-12) Eosinophils (%) (Auto) 0% (0-5) Basophils (%) (Auto) 0.2% (0-3) Sodium Level 143mEq/L (134-144) Potassium Level 3.7mEq/L (3.5-5.2) Chloride Level 108mEq/L (97-108) Carbon Dioxide Level 23mmol/L (18-29) Blood Urea Nitrogen 33mg/dL (8-27) Creatinine 0.69mg/dL (0.57-1.00) Estimat Glomerular Filtration Rate 121mL/min (>59) Glucose Level 121mg/dL (60-99) Calcium Level 10.2mg/dL (8.5-10.1) Phosphorus Level 2.8mg/dL (2.5-4.9) Magnesium Level 1.5mg/dL (1.6-2.6) Total Bilirubin 0.3mg/dL (0.0-1.2) Aspartate Amino Transf (AST/SGOT) 12U/L (0-50) Alanine Aminotransferase (ALT/SGPT) 18U/L (0-32) Alkaline Phosphatase 66U/L (25-165) Total Protein 6.3g/dL (6.4-8.4) Albumin 3.8g/dL (3.4-5.0) Discharge Medications Discharge Medications Amlodipine (Amlodipine) 5 Mg Tablet 10 MG PO DAILY Prescribed by: HAIM LICEA MD Buspirone (Buspirone) 15 Mg Tablet 30 MG PO BID (Reported) Cholecalciferol (Vitamin D3) (Vitamin D3) 5,000 Unit Capsule 5,000 UNIT PO DAILY (Reported) Escitalopram Oxalate (Escitalopram Oxalate) 10 Mg Tablet 20 MG PO DAILY ( Reported) Gabapentin (Gabapentin) 400 Mg Capsule 1,200 MG PO TID (Reported) Glimepiride (Glimepiride) 1 Mg Tablet 1 MG PO QAM (Reported) Glucosamine HCl (Glucosamine HCl) 1,500 Mg Tablet 1,500 MG PO BID (Reported) Lovastatin (Lovastatin) 40 Mg Tablet 40 MG PO HS (Reported) Metformin (Glucophage) 1,000 Mg Tablet 1,000 MG PO BID (Reported) Topiramate (Topiramate) 50 Mg Tablet 50 MG PO HS (Reported) Additional med instructions Please note that Lisinopril is stopped due to kidney injury, Please take 2tab of amlodipine, 10mg for better blood pressure control Please avoid ibuprofen, Advil, Alleve for your pain, because this is also bad for your kidneys Followup Plan Disposition: home with Follow-up plan please follow up with your doctor in one week. Discharge Diet: Diabetic, Renal Diet Discharge Activity: No restrictions Patient Instructions You were hospitalized with confusion, falls, poor kidney functions. Your kidney function greatly improved with medical treatment. Follow-up Provider: Estephania Martini MD Follow-up with PCP in: 1 week Time spent 65min Haim Licea MD Jun 29, 2016 15:58
== END 2016-06-29 12:00 | disposition home health service (06) | DRG 682 ==
LOC: SED 10:30 → MPC 15:52
PROVIDERS: ADMIT Internal Medicine; ATTEND Internal Medicine
DX: N17.9 Acute kidney failure, unspecified (principal); G92 Toxic encephalopathy; E78.5 Hyperlipidemia, unspecified; M79.7 Fibromyalgia; I10 Essential (primary) hypertension; R29.6 Repeated falls; E11.42 Type 2 diabetes mellitus with diabetic polyneuropathy; M54.9 Dorsalgia, unspecified; G25.0 Essential tremor